=== PATIENT | female | born 1935 | race Caucasian/White ===

== ENCOUNTER 2017-06-06 05:59 | Day surgery (SDC) | payer OTHER ==
[2017-06-04 11:31] LABS: Potassium 4.6 mEq/L (3.6-5.0)
[2017-06-04 11:36] LABS: Protime INR 1.06
[2017-06-04 11:40] LABS: Absolute Lymphocytes (CBC) 1.6 K/uL (0.7-4.9); Absolute Monocytes 0.9 K/uL (0.1-1.3); Absolute Neutrophil 5.4 K/uL (1.8-8.0); Basophils % 0.7 % (0-1.3); Eosinophils % 1.2 % (0-4.4); Hematocrit 38.4 % (36.0-45.0); Lymphocytes % 20.1 % (15.3-44.8); MCH 29.4 pg (27.0-35.0); MCV 89.9 fL (80-100); MPV 9.4 fL (7.6-11.3); Monocytes % 10.7 % (3.3-12.3); RBC Red Blood Cell Count 4.27 M/uL (3.86-4.86)
[2017-06-04 12:04] LABS: Urine Appearance CLEAR; Urine Bilirubin NEGATIVE (NEG); Urine Blood 1+ (NEG); Urine Color YELLOW; Urine Glucose NEGATIVE (NEG); Urine Protein NEGATIVE (NEG); Urine Urobilinogen 0.2 mg/dL (0.2-1.0)
[2017-06-04 12:06] LABS: Urine Microscopic Reflex ORDER UMIC
[2017-06-04 12:28] LABS: Urine Bacteria <20 /HPF (<20)
[2017-06-04 12:29] LABS: Urine Culture Reflex Order NOT NEEDED
[2017-06-06] MEDS ORDERED: CEFAZOLIN/SWI 1gm 1 GM/10 ML SYR ONE ×2 (06:44→07:08)
[2017-06-06] MEDS ORDERED: Ringers Lactate 1,000 ML IV ONE ×2 (06:44→12:47)
[2017-06-06] MEDS ORDERED: NA CHLORIDE 0.9% 100 ML IV ONE (07:07)
[2017-06-06] MEDS ORDERED: VASOPRESSIN 20 UNIT/ML VIAL ONE (07:08)
[2017-06-06] MEDS ORDERED: MIDAZOLAM HCL 2 MG/2 ML INJ ONE (07:21)
[2017-06-06] MEDS ORDERED: ROCURONIUM 50 MG/5 ML VIAL IV ONE (07:22)
[2017-06-06] MEDS ORDERED: LIDOCAINE 2% MPF 5 ML VIAL ONE (07:22)
[2017-06-06] MEDS ORDERED: FENTANYL CITR 100 MCG/2 ML ONE ×2 (07:22→09:53)
[2017-06-06] MEDS ORDERED: PROPOFOL 200 MG/20 ML VIAL IV ONE (07:23)
[2017-06-06] MEDS ORDERED: EPHEDRINE SULF 50 MG/5 ML SYR ONE (08:11)
[2017-06-06] MEDS: Ringers Lactate 1,000 ML IV ONE ×2 (08:45→08:50)
[2017-06-06] MEDS ORDERED: NEOSTIGMINE 1 MG/ML -5 ML SYRINGE ONE (09:11)
[2017-06-06] MEDS ORDERED: GLYCOPYRROLATE 0.2 MG/ML SYR ONE (09:11)
[2017-06-06] MEDS ORDERED: ALBUTEROL INHALER 60 PUFF/8 GM IH ONE (09:38)
[2017-06-06] MEDS ORDERED: ONDANSETRON 4 MG/2 ML VIAL ONE (12:03)
[2017-06-06] MEDS ORDERED: PROMETHAZINE 25 MG/ML VIAL IV PRN (12:38)
[2017-06-06] MEDS ORDERED: ACETAMINOPHEN 500 MG TAB PO PRN (12:38)
[2017-06-06] MEDS ORDERED: MORPHINE 4 MG/ML SYR IV PRN (12:38)
[2017-06-06] MEDS ORDERED: NA CHLORIDE 0.9% 1,000 ML IV SCH (13:00)
[2017-06-06 13:24] VITALS: O2SAT 97; BMI 26.0
[2017-06-06] MEDS ORDERED: ALBUTEROL INHALER 60 PUFF/8 GM IH PRN (14:37)
--- NOTE | 2017-06-06 23:54 | OP ---
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 Procedures Performed: Colpocleisis, perineorrhaphy, mid urethral sling with TVT-O and cystoscopy. Anesthesia: General endotracheal. Estimated Blood Loss: Minimal 50 mL. Specimens: None. Complications: None. Drains: Lam catheter. Findings: Pop-Q is as follows; +2, +4, +5, 5 cm, then 5-6 cm, posterior AP is +2 and BP was +2, poin t D nonapplicable. On cystoscopy, the bladder appeared to be unremarkable. No evidence of any bladder perforation or tr auma from the procedures. Both ureteric orifices were visualized and good streams of urine from both . Brief History And Physical: The patient is an 82-year-old with history of hysterectomy, BSO, vaginal wall prolapse for a few years, progressively getting worse. She was managed with a pessary and the pessary had not worked for this patient due to erosion. Given her past history of breast cancer, she was very reluctant to use local estrogen therapy and so this did not work for her. We discussed pos sibilities of , then took the pessary out and allowed her to just observe since that is wha t she wanted to do at that time; however, she continued to have some recurrent bladder infections and so finally she made the decision that she was going to get this surgically treated. We discussed op tions about reconstruction or vaginal closure. After doing a urodynamic testing, she was found to dickens ve an occult stress urinary incontinence at times. The patient did have urinary leakage when the pes jordan was present. Currently, no other major problems. She was very sure that she was given 3 opport unities to think about and discuss the permanency of the procedure with colpocleisis. She discussed with the , watched videos of this, and she has understood the alternatives of reconstruction a nd its risks as compared to the colpocleisis including the comparisons of efficacy. Once all these w ere thoroughly thought through by the patient, she decided to proceed with a colpocleisis, understand ing that the vaginal closure was permanent and could not be reversed. She had not been sexually acti ve for many years due to her 's problems, so she was fairly sure after discussing with him. She was taken to the OR today after 1 g of Ancef was given. She was placed in a supine fashion on th e operating table. After general anesthesia was given, she was placed in a dorsal lithotomy position using the Juan stirrups. Pelvic exam performed and POP-Q as above. The vaginal wall was well visualized. This was picked up with 2 Allis clamps, after the lower abdome n, vulva, vagina, and perineum were prepped and draped in a sterile fashion. Lam was placed to torres in the bladder and retracted after it was clamped with a Kelsi superiorly. The anterior and posterio r hager were well visualized. They were marked out with a marking pen in a trapezoid fashion to know the markings of the superior and inferior part of the anterior and posterior wall excisions. Once t he markings were made with a marking pen, then we went ahead and injected with dilute vasopressin. P osterior wall was thus dissected. After this, the vaginal epithelium was leaving as much as tissue as possible behind. There was an enterocele, which did not have much covering, probably li semaj due to a fascial defect in this area. However, carefully without entering the enterocele sac, t his was . This was plicated together with 3-0 Vicryl sutures in the area, where the defect was visualized. Once this was closed, then we went ahead and proceeded to do the anterior wall and a nterior wall was also injected with dilute vasopressin and then the vaginal epithelium was peeled off leaving as much sub epithelium and fascia as possible. Once all this epithelium was removed as well , then thin strip of vaginal epithelium was left in the vaginal wall and on the sides as well. Most of the epithelium of the entire vaginal wall was stripped other than the distal 2 cm. The central bridge was used to start the closure of the vaginal wall. The fascia of the subepithelia l and connective tissue in the anterior and posterior hager were plicated together with continuous ru nning 2-0 Vicryl stitch starting at the left end of the vaginal wall bridge of epithelium. This was closed imbricating the vaginal epithelium, we went all the way to the end of it and then the entire r ight side. Lateral edges of the anterior and posterior wall were brought together with the help of a continuous running 2-0 Vicryl and then tied in the distal most part. In similar fashion, the anteri or and posterior hager on the left side were brought together using the bridge of the epithelium left in a continuous running fashion imbricating the vaginal epithelium. Once all these hager on the usman es were fixated together, then interrupted 3-0 Vicryl x2 were used to bring the anterior and posterio r hager together close to the vault about every cm, there were sutures that were placed in a figure-o f-eight fashion on the top and the bottom hager to get it together. After the first initial two 3-0 Vicryl stitches, then 2-0 Vicryl sutures were placed into more rows to appose the anterior and 911 telecommunicator ior hager together. Two to 3 stitches each were placed in each row to bring both hager together with out any space. Then, once the entire anterior wall was closed down which was larger than the po sterior wall bulge, then I evaluated the lower 1/3 of the vaginal wall. This appeared to have perine ocele. So, I took down another cm of the vaginal epithelium out in here. The anterior posterior wal ls were brought together as well. Then closed the vaginal mucosa from side to side with the help of 2-0 Vicryl in an interrupted fashion, 2 stitches had to be placed from anterior to posterior edge on the lateral aspect as they were in come together in the midline. Once this was all done, entire clos ure was done, so the colpocleisis then proceeded with the perineorrhaphy. Allises were placed at the hymenal opening. There was detachment of the ring and the deep transverse perineum were with a scar from her episiotomies and the scar was very obvious as well, so injection was given on the perineum and the vestibule and lowest 2 cm of the vaginal wall with vasopr essin. Then, the skin incision was made in a triangular fashion on the perineum and access gained in to the posterior compartment and this was traveled all the way to the level of the colpocleisis. The epithelium and sub-epithelium were dissected away from the underlying tissues and two wer e made, one on each side. Then, this was mildly trimmed performing the dissection. Then, 2-0 Vicryl stitch was placed from [id number] in the posterior lower was most part quite not as lat eral as the levators, but then this was tied again in the middle. Then, the perineal body was viktoriya t together with the help of 3 interrupted 2-0 Vicryl sutures with the finger in the rectum helping me place at the correct position. Once these were all brought together, the deep transverse perinei mu scles were put back together. Then, 3-0 Vicryl was used to close the mucosal incision in the subcuta neous fashion at the perineal body on the perineum and then the subcuticular fashion coming back up a nd putting the stitch inside the hymenal ring. There was excellent support. Rectal exam performed. No evidence of any trauma or perforation of the bowel. Gloves were changed. Cystoscopy was perform ed after the Lam was removed with a 17-Hungarian sheath, 30-degree lens, and normal saline. The cysto scopy was negative. No evidence of any trauma. Both ureteric orifices were patent. The Lam was r eplaced back after draining the bladder and clamped and retracted superiorly. Midurethral sling was done beginning of the vaginal mucosa on either side to the midline in the mid u rethral part about a cm proximal to the external urethral meatus. An incision was made with a 10 shanae de after infiltration with dilute vasopressin. Then, the external exit points of the TVT-O needles w ere marked out by the package instructions. Then, we went onto create flaps on both sides. Dissecti on was performed on both sides going to the inferior pubic ramus, passed into the obturator space and once the obturator membrane was perforated, the tips were opened up, and the scissors pulled back. On the left side, similar dissection was performed without any problems, then placed the wing guide o n the right side first, passed the spike, came out of the exit point like planned, and the plastic di lator was still left in place in opposite side. The wing guide was placed following the same dissect ion channel that was created on the first attempt. After the wing guide was placed, the plastic dila tor was passed through the needle and once it exited the point marked, the dilator was left in place. Lam was removed and cystoscopy was performed. No evidence of any trauma or perforation of the bl adder. The scope was removed. Lam was replaced. The sling was tensioned appropriately with Metzenbaum scissors right behind the sling and underneath the urethra. Once this was tensioned, the sheaths were pulled out after the plastic trocars were cut out. The skin was closed with the help of Dermabond. On the left side, there was some bleeding, bu t this stopped immediately after the graft was repositioned back. The mucosal incision here was clos ed with the help of a 3-0 Vicryl in a continuous running locked fashion. There was excellent hemosta sis. There was no more cystoscopy. Lam was placed to drain the bladder. Dermabond used to close the skin incisions in the thighs and the patient was recovered from anesthesia. Instrument, needle, and sponge counts x3 were correct at the end of the case. The patient tolerated the procedure well. She will be kept in the hospital for voiding tr ials and discharged home tomorrow. FLAVIA/ARABELLA Voice ID: [id number] Report ID: [id number]
[2017-06-07] MEDS ORDERED: Ringers Lactate 1,000 ML IV ONE (00:09)
[2017-06-07 04:23] LABS: Absolute Lymphocytes (CBC) 1.5 K/uL (0.7-4.9); Basophils % 0.3 % (0-1.3); Eosinophils % 0.6 % (0-4.4); Lymphocytes % 14.5 % (15.3-44.8); MCV 88.9 fL (80-100); MPV 9.1 fL (7.6-11.3); Monocytes % 9.8 % (3.3-12.3); RBC Red Blood Cell Count 3.27 M/uL (3.86-4.86)
[2017-06-07 08:01] VITALS: BP 128/62; TEMP 99.2
[2017-06-07] MEDS ORDERED: PROPOFOL 200 MG/20 ML VIAL IV ONE ×2 (12:18→12:48)
[2017-06-07] MEDS ORDERED: LIDOCAINE 2% MPF 5 ML VIAL ONE (12:19)
[2017-06-07] MEDS ORDERED: MIDAZOLAM HCL 2 MG/2 ML INJ ONE (12:19)
[2017-06-07] MEDS ORDERED: FENTANYL CITR 100 MCG/2 ML ONE (12:20)
[2017-06-07] MEDS ORDERED: ONDANSETRON 4 MG/2 ML VIAL ONE (12:20)
== END 2017-06-07 10:30 | disposition home or self-care (01) ==
LOC: OR 05:59 → 2ND-WC 11:31 → OR 06-07 10:30
PROVIDERS: ATTEND Obstetrics & Gynecology
PROC: 0ULG7ZZ Occlusion of Vagina, Via Natural or Artificial Opening (ICD-10-PCS; 2017-06-06)
PROC: 0HQ9XZZ Repair Perineum Skin, External Approach (ICD-10-PCS; 2017-06-06)
PROC: 0TSD0ZZ Reposition Urethra, Open Approach (ICD-10-PCS; principal; 2017-06-06 07:00)
DX: N99.3 Prolapse of vaginal vault after hysterectomy (principal); N39.3 Stress incontinence (female) (male); I10 Essential (primary) hypertension; K21.9 Gastro-esophageal reflux disease without esophagitis; I34.1 Nonrheumatic mitral (valve) prolapse; E05.90 Thyrotoxicosis, unspecified without thyrotoxic crisis or storm; I25.2 Old myocardial infarction; Z85.3 Personal history of malignant neoplasm of breast; Z87.11 Personal history of peptic ulcer disease; Z90.49 Acquired absence of other specified parts of digestive tract; Z90.12 Acquired absence of left breast and nipple
CPT/HCPCS: 12001; 36415 ×2; 57120; 57288; 80048; 85025 ×2; 85610; 85730; 86850; 86900; 86901; J0690 ×2; J2405; J2550; J2710; J3010 ×2; 81003; 81015; J2250

== ENCOUNTER 2019-05-13 07:24 | Observation (INO) | payer OTHER ==
--- NOTE | 2019-05-09 11:29 | EKG ---
Test Date: 2019-05-09 Test Time: 11:19:35 Technical Service Rep: GLADYS MEASUREMENT RESULTS: Intervals: Rate: 64 [place]: 182 QRSD: 76 QT: 412 QTc: 425 [place]: P: 58 [place]: 182 QRS: 69 T: 46 INTERPRETIVE STATEMENTS: Normal sinus rhythm Normal ECG Compared to ECG 12/17/2016 11:54:25 Myocardial infarct finding no longer present Electronically Signed On 05-09-19 11:28:59 PROFESSOR OF NURSING by Edgar Littlejohn
--- NOTE | 2019-05-09 12:06 | RAD REPORT ---
EXAM DESCRIPTION: RAD - Chest Pa And Lat (2 Views) - 05/09/2019 11:57 am CLINICAL HISTORY: pre-op heart cath Chest pain. COMPARISON: Chest Pa And Lat (2 Views) dated 01/17/2019; Chest Single View dated 12/17/2016; CHEST PA AND LAT 2 VIEW dated 03/10/2013; CHEST PA AND LAT 2 VIEW dated 12/09/2010 FINDINGS: The lungs are clear. The heart is upper limit of normal in size. No displaced fractures. IMPRESSION: No acute or concerning finding suspected.
[2019-05-09 12:50] LABS: Absolute Lymphocytes (CBC) 1.5 K/uL (0.7-4.9); Basophils % 0.8 % (0-1.3); Hematocrit 35.8 % (36.0-45.0); Lymphocytes % 22.8 % (15.3-44.8); MPV 9.1 fL (7.6-11.3); RBC Red Blood Cell Count 3.87 M/uL (3.86-4.86)
[2019-05-09 12:52] LABS: Protime INR 1.03
[2019-05-09 13:06] LABS: Potassium 4.1 mmol/L (3.5-5.1)
[2019-05-13] MEDS ORDERED: NA CHLORIDE 0.9% 500 ML ONE (08:06)
[2019-05-13] MEDS ORDERED: ONDANSETRON 4 MG/2 ML VIAL ONE (08:20)
[2019-05-13] MEDS ORDERED: LIDOCAINE 1% MPF 30 ML VIAL ONE (08:23)
[2019-05-13] MEDS ORDERED: HEPA 1000U/500MLS 1,000 UNIT/500 ML BAG IV ONE (08:23)
[2019-05-13] MEDS ORDERED: MIDAZOLAM HCL 2 MG/2 ML INJ ONE (08:54)
[2019-05-13] MEDS ORDERED: NA CHLORIDE 0.9% 50 ML ONE (08:55)
[2019-05-13] MEDS ORDERED: FENTANYL CITR 100 MCG/2 ML ONE (08:55)
[2019-05-13] MEDS ORDERED: ATROPINE SULF 1 MG/10 ML SYR IV ONE (08:55)
[2019-05-13] MEDS ORDERED: ASPIRIN 325 MG TAB ONE (09:36)
[2019-05-13] MEDS ORDERED: PRASUGREL (EFFIENT) 10 MG TAB ONE (09:37)
[2019-05-13] MEDS ORDERED: LIDOCAINE 1% W/EPI 1:100,000 MDV 20 ML VIAL ONE (10:39)
[2019-05-13] MEDS ORDERED: ACETAMINOPHEN 325 MG TABLET PO PRN (12:00)
[2019-05-13] MEDS ORDERED: NITROGLYCERIN 0.4 MG/TAB SL PRN (12:00)
[2019-05-13] MEDS ORDERED: NA CHLORIDE 0.9% 1,000 ML IV SCH (12:00)
[2019-05-13] MEDS ORDERED: PROMETHAZINE INJ 25 MG/ML AMP ONE (12:11)
[2019-05-13 15:03] VITALS: BMI 26.5
[2019-05-13] MEDS ORDERED: ZOLPIDEM TARTRATE 5 MG TABLET PO PRN (17:36)
[2019-05-13] MEDS ORDERED: MORPHINE 4 MG/ML SYR IV PRN (17:36)
--- NOTE | 2019-05-13 20:18 | OP ---
Date of Procedure: 05/13/2019 Surgeon: Edgar Littlejohn MD Charcoal Unloader: Sam Christy. Procedure: Left heart catheterization, selective coronary arteriogram, and primary stent of the mid left anterior descending. Indication: Unstable angina and history of coronary artery disease. History Of Present Illness: Ms. Ochoa is an 84-year-old woman. She has had a history of coronary artery disease in the past. She sees Dr. Tran normally. She did have a stress test that was normal , but has a history of hypertension, dyslipidemia, and continued to have symptoms of dyspnea on exert ion and chest pain despite a normal stress test. She does have a normal ejection fraction with moder ate pulmonary hypertension. She has [id number] mitral regurgitation, was admitted today for an outpatient procedure, which included left heart catheterization, selective coronary arteriogram, and primary stent of the mid LAD. Description Of Procedure: Patient was prepped and draped in the routine sterile fashion. She was gi john Versed for sedation. A 6-Micronesian sheath introduced in the right common femoral artery. 6-Micronesian catheters, left and right, were used to do the injection for the left main and the right main respect ively. Her RCA was normal. Her left main was normal. She had a 70% mid LAD lesion and about 70% to 80% mid to distal OM1 lesion. An XB LAD 3.5 with side hole was used to cannulate the left main. A [place] wire was used to cross the LAD lesion. A 2.5 x 12 Synergy stent at 14 atmospheres was deploye d with 0% residual in the LAD. Patient tolerated the procedure well. There were no complications. Blood Loss: 5 mL. Anesthesia: Total conscious sedation 45 minutes. Patient received Angiomax, aspirin, and Effient du ring the procedure. Plan: The plan is to bring her back and do her OM stent in a different day in a staged manner. Final Diagnosis: Coronary artery disease, status post successful mid left anterior descending stent. Plan to do a staged stent on the OM in the near future. ETIENNE/ARABELLA Voice ID: [id number] Report ID: [id number]
[2019-05-13] MEDS: carvediloL 12.5 MG TAB PO SCH (20:36)
[2019-05-13] MEDS: DOCUSATE NA 100 MG CAP PO SCH (20:37)
[2019-05-13] MEDS ORDERED: ATORVASTATIN 20 MG TAB PO SCH (21:00)
[2019-05-13] MEDS: HYDRALAZINE HCL 25 MG TABLET PO SCH (21:49)
[2019-05-14 04:34] LABS: Absolute Lymphocytes (CBC) 1.6 K/uL (0.7-4.9); Basophils % 0.6 % (0-1.3); Hematocrit 29.9 % (36.0-45.0); Lymphocytes % 22.5 % (15.3-44.8); MPV 8.8 fL (7.6-11.3); RBC Red Blood Cell Count 3.26 M/uL (3.86-4.86)
[2019-05-14 04:46] LABS: Potassium 4.3 mmol/L (3.5-5.1)
[2019-05-14] MEDS ORDERED: LEVOTHYROXINE SOD 0.1 MG TAB PO SCH (06:30)
[2019-05-14 06:46] VITALS: TEMP 97.8
[2019-05-14] MEDS ORDERED: PANTOPRAZOLE 40MG TABLET PO SCH (07:30)
[2019-05-14 07:44] VITALS: O2SAT 96
[2019-05-14] MEDS: DOCUSATE NA 100 MG CAP PO SCH (07:46)
[2019-05-14] MEDS: HYDRALAZINE HCL 25 MG TABLET PO SCH (07:46)
[2019-05-14 07:47] VITALS: BP 105/54
[2019-05-14] MEDS: carvediloL 12.5 MG TAB PO SCH (07:47)
[2019-05-14] MEDS ORDERED: CLOPIDOGREL 75 MG TABLET PO SCH (09:00)
[2019-05-14] MEDS ORDERED: MULTIVITAMIN TAB PO SCH (09:00)
[2019-05-14] MEDS ORDERED: LOSARTAN POTASSIUM 50 MG TABLET PO SCH (09:00)
[2019-05-14] MEDS ORDERED: ASPIRIN EC 81 MG TAB PO SCH (09:00)
--- NOTE | 2019-05-14 09:04 | EKG ---
Test Date: 2019-05-14 Test Time: 08:30:05 Radiation Physicist: GLADYS MEASUREMENT RESULTS: Intervals: Rate: 66 [place]: 172 QRSD: 82 QT: 404 QTc: 423 [place]: P: 46 [place]: 172 QRS: 4 T: 18 INTERPRETIVE STATEMENTS: Normal sinus rhythm Inferior infarct, age undetermined Abnormal ECG Compared to ECG 05/09/2019 11:19:35 Myocardial infarct finding now present Electronically Signed On 05-14-19 09:03:40 STACKING MACHINE OPERATOR by Alex Lino
== END 2019-05-14 09:15 | disposition home or self-care (01) ==
LOC: CCL 07:24 → 4TH 11:42
PROC: 027034Z Dilation of Coronary Artery, One Artery with Drug-eluting Intraluminal Device, Percutaneous Approach (ICD-10-PCS; principal; 2019-05-14)
PROC: 4A023N7 Measurement of Cardiac Sampling and Pressure, Left Heart, Percutaneous Approach (ICD-10-PCS; 2019-05-14)
PROC: B201YZZ Plain Radiography of Multiple Coronary Arteries using Other Contrast (ICD-10-PCS; 2019-05-14)
PROC: B205YZZ Plain Radiography of Left Heart using Other Contrast (ICD-10-PCS; 2019-05-14)
DX: I25.110 Atherosclerotic heart disease of native coronary artery with unstable angina pectoris (principal); I65.23 Occlusion and stenosis of bilateral carotid arteries; I10 Essential (primary) hypertension; E78.5 Hyperlipidemia, unspecified
CPT/HCPCS: 93005 ×2; 85025 ×2; 80048 ×2; 36415 ×2; 85610; 80061; 85347 ×4; 85730; 71046; 93454; 92928; C1893; C1725; C1877; C9600; J2550; J2250; J3010; J0583; J7040; J2405; G0378 ×3

== ENCOUNTER 2019-05-27 06:33 | Day surgery (SDC) | payer OTHER ==
[2019-05-23 11:45] LABS: Absolute Lymphocytes (CBC) 1.2 K/uL (0.7-4.9); Basophils % 0.6 % (0-1.3); Hematocrit 33.9 % (36.0-45.0); Lymphocytes % 23.5 % (15.3-44.8); MPV 8.8 fL (7.6-11.3); RBC Red Blood Cell Count 3.61 M/uL (3.86-4.86)
[2019-05-23 11:51] LABS: Protime INR 1.03
[2019-05-27] MEDS ORDERED: HEPA 1000U/500MLS 1,000 UNIT/500 ML BAG IV ONE (06:49)
[2019-05-27] MEDS ORDERED: LIDOCAINE 1% MPF 30 ML VIAL ONE (06:49)
[2019-05-27] MEDS ORDERED: NA CHLORIDE 0.9% 500 ML ONE (06:52)
[2019-05-27] MEDS ORDERED: ONDANSETRON 4 MG/2 ML VIAL ONE (07:26)
[2019-05-27] MEDS ORDERED: MIDAZOLAM HCL 2 MG/2 ML INJ ONE (07:44)
[2019-05-27] MEDS ORDERED: FENTANYL CITR 100 MCG/2 ML ONE (07:44)
[2019-05-27] MEDS ORDERED: NA CHLORIDE 0.9% 50 ML ONE (07:45)
[2019-05-27] MEDS ORDERED: NITROGLYCERIN 100 MCG/ML SYR (for cath lab use only) IV ONE (07:45)
[2019-05-27] MEDS ORDERED: ATROPINE SULF 1 MG/10 ML SYR IV ONE (07:45)
[2019-05-27] MEDS ORDERED: NITROGLYCERIN/D5W 0 MG/0 ML BTL IV ONE (07:45)
[2019-05-27] MEDS ORDERED: NITROGLYCERIN/D5W 25 MG/250 ML BTL IV ONE (08:00)
[2019-05-27] MEDS ORDERED: ASPIRIN 325 MG TAB ONE (08:12)
[2019-05-27] MEDS ORDERED: PRASUGREL (EFFIENT) 10 MG TAB ONE (08:13)
[2019-05-27] MEDS ORDERED: ONDANSETRON 4 MG/2 ML VIAL IV PRN (10:55)
[2019-05-27] MEDS ORDERED: NITROGLYCERIN 0.4 MG/TAB SL PRN (11:00)
[2019-05-27] MEDS ORDERED: ACETAMINOPHEN 325 MG TABLET PO PRN (11:00)
[2019-05-27] MEDS ORDERED: NA CHLORIDE 0.9% 1,000 ML IV SCH (11:00)
[2019-05-27 11:32] VITALS: BMI 26.5
--- NOTE | 2019-05-27 12:56 | OP ---
Surgeon: Edgar Littlejohn MD Mucking Machine Operator: Sam Christy. She was admitted as an outpatient to my service for an intervention today. Procedure Performed: Selective coronary arteriogram with a primary stent of the obtuse marginal. History Of Present Illness: Ms. Ochoa is 84, has had a history of coronary artery disease approxi mately a month ago. She underwent an LAD stent. She has had negative stress test in past and negati ve echo and continued to have chest pain. Since her LAD stent, she has improved drastically. On her last angiography, she was found to have an 80 to 90% first obtuse marginal. It was staged intervent ion that was planned for today. She was brought to the tender labor, prepped and draped in the routine s terile fashion. A 6-Malian sheath introduced in the right common femoral artery. Versed was given a nd fentanyl for sedation. A 6-Malian XB 3.5 was used to cannulate the left main. Coronary injection revealed a patent LAD stent and 90% first obtuse marginal. A Fraser wire was used to cross the lesi on, 0.014. A 2.25 x 12 Synergy stent was placed successfully at 14 atmosphere with 0% residual. The patient tolerated the procedure well. There were no complications. Blood Loss: 5 mL. Patient received aspirin, Effient, and Angiomax during the procedure. Anesthesia: Total conscious sedation was 45 minutes. Final Diagnosis: Status post successful primary stent of the obtuse marginal. Plan: For her to stay in the hospital overnight and she will go home tomorrow and I will see her in the office in a couple of weeks. No change in her medical therapy for now. ETIENNE/ARABELLA Voice ID: [id number] Report ID: [id number]
[2019-05-27] MEDS ORDERED: ATORVASTATIN 20 MG TAB PO SCH (21:00)
[2019-05-27] MEDS: HYDRALAZINE HCL 25 MG TABLET PO SCH (21:09)
[2019-05-28 04:17] LABS: Absolute Lymphocytes (CBC) 1.1 K/uL (0.7-4.9); Basophils % 0.7 % (0-1.3); Hematocrit 29.2 % (36.0-45.0); Lymphocytes % 20.1 % (15.3-44.8); MPV 8.6 fL (7.6-11.3); RBC Red Blood Cell Count 3.12 M/uL (3.86-4.86)
[2019-05-28 04:33] LABS: Potassium 4.4 mmol/L (3.5-5.1)
[2019-05-28] MEDS ORDERED: carvediloL 12.5 MG TAB PO SCH (06:00)
[2019-05-28] MEDS ORDERED: LEVOTHYROXINE SOD 0.1 MG TAB PO SCH (06:30)
[2019-05-28] MEDS ORDERED: PANTOPRAZOLE 40MG TABLET PO SCH (06:30)
[2019-05-28 07:37] VITALS: O2SAT 95
[2019-05-28] MEDS: HYDRALAZINE HCL 25 MG TABLET PO SCH (07:40)
[2019-05-28 07:55] VITALS: BP 119/60; TEMP 97.5
[2019-05-28] MEDS ORDERED: ASPIRIN 81 MG CHEWABLE TABLET PO SCH (09:00)
[2019-05-28] MEDS ORDERED: CLOPIDOGREL 75 MG TABLET PO SCH (09:00)
[2019-05-28] MEDS ORDERED: MULTIVITAMIN TAB PO SCH (09:00)
[2019-05-28] MEDS ORDERED: LOSARTAN POTASSIUM 50 MG TABLET PO SCH ×2 (09:00)
--- NOTE | 2019-05-28 13:24 | EKG ---
Test Date: 2019-05-28 Test Time: 08:29:34 Engine Boss: GLADYS MEASUREMENT RESULTS: Intervals: Rate: 66 [place]: 176 QRSD: 80 QT: 410 QTc: 429 [place]: P: 57 [place]: 176 QRS: 3 T: 26 INTERPRETIVE STATEMENTS: Normal sinus rhythm Cannot rule out Anterior infarct, age undetermined Abnormal ECG Compared to ECG 05/14/2019 08:30:05 No significant changes Electronically Signed On 05-28-19 13:24:06 CDT by Alex Lino
== END 2019-05-28 11:22 | disposition home or self-care (01) ==
LOC: CCL 06:33 → 4TH 10:24 → CCL 05-28 11:22
DX: I25.110 Atherosclerotic heart disease of native coronary artery with unstable angina pectoris (principal); I65.23 Occlusion and stenosis of bilateral carotid arteries; I34.1 Nonrheumatic mitral (valve) prolapse; I10 Essential (primary) hypertension; E78.5 Hyperlipidemia, unspecified; Z85.3 Personal history of malignant neoplasm of breast; Z88.6 Allergy status to analgesic agent; Z88.3 Allergy status to other anti-infective agents; Z88.8 Allergy status to other drugs, medicaments and biological substances; Z79.82 Long term (current) use of aspirin; Z79.02 Long term (current) use of antithrombotics/antiplatelets; Z82.49 Family history of ischemic heart disease and other diseases of the circulatory system
CPT/HCPCS: 93005; 85025 ×2; 80048; 36415 ×2; 85610; 80061; 85347 ×3; 85730; 93454; C1893; C1760; C1725; C9600; J2250; J3010; J0583; J7040; J2405

== ENCOUNTER 2019-11-18 18:23 | Emergency (ER) | payer OTHER ==
--- NOTE | 2019-11-18 19:07 | RAD REPORT ---
EXAM DESCRIPTION: CT - [id number] - 11/18/2019 6:50 pm CLINICAL HISTORY: fall from standing, head injury COMPARISON: No comparisons TECHNIQUE: Axial 5 mm thick images of the head were obtained. Axial 2 mm thick images of the cervic al spine were obtained with sagittal and coronal reconstruction images generated and reviewed. All CT scans are performed using dose optimization technique as appropriate and may include automated exposure control or mA/KV adjustment according to patient size. FINDINGS: No intracranial hemorrhage, mass, edema or acute intracranial finding. No suspicion for ac [place] infarction. No extra-axial fluid collections. Mastoid air cells and paranasal sinuses are clear. No globe or orbit abnormality seen. Minimal atrophy and chronic ischemic change. Ventricles are alva l. Small left frontal scalp hematoma is present. Underlying bone is intact. Cervical bodies are normal in height. No subluxation abnormality. Advanced degenerative change presen t at the dens anterior arch C1 level. C4-5 and C6-7 disc space narrowing present. No fracture or acut e bony abnormality. No pathologic bone process. Central canal detail is inherently limited. No paraspinal mass or hematoma. Carotid arterial calcifications are present. IMPRESSION: No hemorrhage, edema or acute intracranial finding. Patient has minimal atrophy and senior hr business partner anne ischemic change. Left frontal scalp hematoma is present with underlying bone intact. Cervical spine degenerative changes are present as detailed. No acute findings.
[2019-11-18] MEDS ORDERED: ACETAMINOPHEN 500 MG TAB ONE (19:47)
[2019-11-18] MEDS ORDERED: LIDOCAINE 1% MPF 30 ML VIAL ONE (19:50)
[2019-11-18] MEDS ORDERED: TETANUS & DIPHTHERIA TOX,ADULT 0.5 ML VIAL ONE (19:50)
--- NOTE | 2019-11-18 20:27 | EDPHYS ---
Physician Documentation [facility] Name: Kenney Ochoa Age: 84 yrs Sex: Female : 1935 Arrival Date: 11/18/2019 Time: 18:28 Bed 15 Private MD: ED Physician Brady Oneill HPI: 11/17 19:18 This 84 yrs old Female presents to ER via EMS with complaints of Fall Injury. mh7 19:18 Details of fall: The patient fell from an upright position, while walking. Onset: The mh7 symptoms/episode began/occurred just prior to arrival, today. Associated injuries: The patient sustained injury to the head, laceration, 4 cm(s), of the forehead. Severity of symptoms: At their worst the symptoms were moderate, earlier today, in the emergency department the symptoms are unchanged. 19:19 Patient states that she tripped and fell over object on floor at home. She denies any mh7 LOC, neck pain, chest pain, abdominal pain, SOB, nausea, vomiting, dizziness, numbness/tingling, or weakness. She denies any symptoms prior to falling.. Historical: - Allergies: 18:32 Ciprofloxacin HCl; hb 18:32 Codeine; hb 18:32 Flagyl; hb 18:32 Hydrochlorothiazide; hb - Home Meds: 18:32 aspirin 81 mg Oral chew 2 tabs once daily [Active]; carvedilol 25 mg Oral tab 1 tab 2 hb times per day [Active]; levothyroxine 100 mcg tab 1 tab once daily [Active]; Nexium 40 mg Oral cpDR 1 cap once daily [Active]; simvastatin 40 mg Oral tab 1 tab once daily [Active]; valsartan 80 mg Oral tab 1 tab once daily [Active]; - PMHx: 18:32 High Cholesterol; Hypertension; Breast CA; hb - PSHx: 18:32 left mastectomy; left knee; right knee; Cholecystectomy; right hip; Hysterectomy; hb hemorroid; Mastectomy - Left; - Immunization history:: Adult Immunizations up to date. - Social history:: Smoking status: Patient denies any tobacco usage or history of. - Immunization history: Last tetanus immunization:. ROS: 19:19 Constitutional: Negative for fever, chills, and weight loss, Eyes: Negative for injury, mh7 pain, redness, and discharge, ENT: Negative for injury, pain, and discharge, Neck: Negative for injury, pain, and swelling, Cardiovascular: Negative for chest pain, palpitations, and edema, Respiratory: Negative for shortness of breath, cough, wheezing, and pleuritic chest pain, Abdomen/GI: Negative for abdominal pain, nausea, vomiting, diarrhea, and constipation, Back: Negative for injury and pain, : Negative for injury, bleeding, discharge, and swelling, MS/Extremity: Negative for injury and deformity, Neuro: Negative for headache, weakness, numbness, tingling, and seizure, Psych: Negative for depression, anxiety, suicide ideation, homicidal ideation, and hallucinations, Allergy/Immunology: Negative for hives, rash, and allergies, Endocrine: Negative for neck swelling, polydipsia, polyuria, polyphagia, and marked weight changes, Hematologic/Lymphatic: Negative for swollen nodes, abnormal bleeding, and unusual bruising. Exam: 19:19 Constitutional: This is a well developed, well nourished patient who is awake, alert, mh7 and in no acute distress. 19:19 Eyes: Pupils equal round and reactive to light, extra-ocular motions intact. Lids and lashes normal. Conjunctiva and sclera are non-icteric and not injected. Cornea within normal limits. Periorbital areas with no swelling, redness, or edema. ENT: Nares patent. No nasal discharge, no septal abnormalities noted. Tympanic membranes are normal and external auditory canals are clear. Oropharynx with no redness, swelling, or masses, exudates, or evidence of obstruction, uvula midline. Mucous membranes moist. Neck: Trachea midline, no thyromegaly or masses palpated, and no cervical lymphadenopathy. Supple, full range of motion without nuchal rigidity, or vertebral point tenderness. No Meningismus. Chest/axilla: Normal chest wall appearance and motion. Nontender with no deformity. No lesions are appreciated. Cardiovascular: Regular rate and rhythm with a normal S1 and S2. No gallops, murmurs, or rubs. Normal PMI, no JVD. No pulse deficits. Respiratory: Lungs have equal breath sounds bilaterally, clear to auscultation and percussion. No rales, rhonchi or wheezes noted. No increased work of breathing, no retractions or nasal flaring. Abdomen/GI: Soft, non-tender, with normal bowel sounds. No distension or tympany. No guarding or rebound. No evidence of tenderness throughout. Back: No spinal tenderness. No costovertebral tenderness. Full range of motion. MS/ Extremity: Pulses equal, no cyanosis. Neurovascular intact. Full, normal range of motion. Neuro: Awake and alert, GCS 15, oriented to person, place, time, and situation. Cranial nerves II-XII grossly intact. Motor strength 5/5 in all extremities. Sensory grossly intact. Cerebellar exam normal. Normal gait. Psych: Awake, alert, with orientation to person, place and time. Behavior, mood, and affect are within normal limits. 11/18 03:57 Head/face: mh7 03:57 Head/face: Noted is contusion, that is superficial, of the forehead, a laceration(s), mh7 that is deep, 4.5 cm(s), of the forehead. Vital Signs: 11/17 18:30 BP 161 / 69; Pulse 64; Resp 16; Temp 97.7; Pulse Ox 100% on R/A; Weight 68.04 kg; hb Height 5 ft. 3 in. (160.02 cm); Pain 0/10; 18:30 BP 168 / 84; Pulse 70; Resp 16; Temp 97.6(O); Pulse Ox 98% on R/A; Pain 0/10; ls4 18:30 Body Mass Index 26.57 (68.04 kg, 160.02 cm) hb [place] Coma Score: 18:23 Eye Response: spontaneous(4). Verbal Response: oriented(5). Motor Response: obeys hb commands(6). Total: 15. Trauma Score (Adult): 18:23 Eye Response: spontaneous(1); Verbal Response: oriented(1); Motor Response: obeys hb commands(2); Systolic BP: > 89 mm Hg(4); Respiratory Rate: 10 to 29 per min(4); Kelsey Score: 15; Trauma Score: 12 Laceration: 20:23 Wound Repair of 4.5cm ( 1.8in ) subcutaneous laceration to forehead. Distal mh7 neuro/vascular/tendon intact. Anesthesia: Local anesthetic administered with 6 mls of 1% lidocaine. Wound prep: Extensive cleansing with hibiclenz by me, Wound irrigation by me, Wound explored, Copious irrigation. Skin closed with 11 6-0 Prolene using interrupted sutures and sterile technique. Subcutaneous tissue closed with 3 5-0 Vicryl using interrupted sutures and sterile technique. Dressed with Bacitracin, 4x4's, non-adherent dressing. Patient tolerated well. MDM: 19:11 Patient medically screened. [facility] 20:23 Differential diagnosis: abrasion, closed head injury, contusion, fracture, laceration. [facility] Data reviewed: vital signs, nurses notes, radiologic studies, CT scan. Data interpreted: Pulse oximetry: on room air is 98 %. Interpretation: normal. Counseling: I had a detailed discussion with the patient and/or guardian regarding: the historical points, exam findings, and any diagnostic results supporting the discharge/admit diagnosis, the presence of at least one elevated blood pressure reading (>120/80) during this emergency department visit, radiology results, the need for outpatient follow up, to return to the emergency department if symptoms worsen or persist or if there are any questions or concerns that arise at home. 11/18 03:57 Response to treatment: the patient's symptoms have markedly improved after treatment. [facility] 11/17 18:37 Order name: CT Head C Spine; Complete Time: 19:12 hb Administered Medications: 11/17 20:03 Drug: Tetanus-Diphtheria Toxoid Adult 0.5 ml {Print Controller: feedPack. Exp: ll2 05/14/2022. Lot #: [id number]. } Route: IM; Site: right deltoid; 20:20 Follow up: Response: No adverse reaction; Marked relief of symptoms ls4 20:03 Drug: Tylenol 1000 mg Route: PO; ll2 20:20 Follow up: Response: No adverse reaction ls4 Disposition: 11/18 03:58 Co-signature as Attending Physician, Brady Oneill MD. [facility] Disposition: 11/18/19 20:27 Discharged to Home. Impression: Fall-Mechanical, Facial Laceration. - Condition is Stable. - Discharge Instructions: Facial Laceration, [id number], Fall Prevention in the Home, [id number]. - Medication Reconciliation Form, Thank You Letter, Antibiotic Education, Prescription Opioid Use form. - Follow up: Private Physician; When: 48 Hours; Reason: Wound Recheck, Worsening of condition, Recheck today's complaints, Continuance of care, Re-evaluation by your physician. - Problem is new. - Symptoms have improved. Signatures: Dispatcher [employer] EDMS Muna Storm, RN RN Johanna Carter RN RN ls4 Tressa Roberts RN RN ll2 Brady Oneill MD MD mh7 Corrections: (The following items were deleted from the chart) 11/17 21:32 20:27 11/18/2019 20:27 Discharged to Home. Impression: Fall-Mechanical; Facial ls4 Laceration. Condition is Stable. Forms are Medication Reconciliation Form, Thank You Letter, Antibiotic Education, Prescription Opioid Use. Follow up: Private Physician; When: 48 Hours; Reason: Wound Recheck, Worsening of condition, Recheck today's complaints, Continuance of care, Re-evaluation by your physician. Problem is new. Symptoms have improved. mh7
--- NOTE | 2019-11-18 20:27 | ER ---
Nurse's Notes [facility] Name: Kenney Ochoa Age: 84 yrs Sex: Female : 1935 Arrival Date: 11/18/2019 Time: 18:28 Bed 15 Private MD: Diagnosis: Fall-Mechanical;Facial Laceration Presentation: 11/17 18:28 Chief complaint: EMS states: Left forehead laceration after mechanical fall from hb standing. Pt tripped while ambulating in living room, hit head on end table. NEGATIVE LOC;. Takes ASA. Care prior to arrival: None. Mechanism of Injury: Fall from standing position. Trauma event details: Injury occurred in the [facility], Injury occurred: at home. Injury occurred: November 18, 2019. 18:28 Acuity: ELLEN 2 hb 18:28 Method Of Arrival: EMS: [facility] 18:30 Coronavirus screen: At this time, the client does not indicate any symptoms associated hb with coronavirus-19. Ebola Screen: No symptoms or risks identified at this time. Initial Sepsis Screen: Does the patient meet any 2 criteria? No. Patient's initial sepsis screen is negative. Does the patient have a suspected source of infection? No. Patient's initial sepsis screen is negative. Risk Assessment: Do you want to hurt yourself or someone else? Patient reports no desire to harm self or others. Onset of symptoms was November 18, 2019. Trauma Activation: Alert Physician: ED Physician; Name: ; Notified At: ; Arrived At: Physician: General Surgeon; Name: ; Notified At: ; Arrived At: Physician: Radiology; Name: ; Notified At: ; Arrived At: Physician: Respiratory; Name: ; Notified At: ; Arrived At: Physician: Lab; Name: ; Notified At: ; Arrived At: Historical: - Allergies: 18:32 Ciprofloxacin HCl; hb 18:32 Codeine; hb 18:32 Flagyl; hb 18:32 Hydrochlorothiazide; hb - Home Meds: 18:32 aspirin 81 mg Oral chew 2 tabs once daily [Active]; carvedilol 25 mg Oral tab 1 tab 2 hb times per day [Active]; levothyroxine 100 mcg tab 1 tab once daily [Active]; Nexium 40 mg Oral cpDR 1 cap once daily [Active]; simvastatin 40 mg Oral tab 1 tab once daily [Active]; valsartan 80 mg Oral tab 1 tab once daily [Active]; - PMHx: 18:32 High Cholesterol; Hypertension; Breast CA; hb - PSHx: 18:32 left mastectomy; left knee; right knee; Cholecystectomy; right hip; Hysterectomy; hb hemorroid; Mastectomy - Left; - Immunization history:: Adult Immunizations up to date. - Social history:: Smoking status: Patient denies any tobacco usage or history of. - Immunization history: Last tetanus immunization:. Screenin:23 Abuse screen: Denies threats or abuse. Denies injuries from another. Tuberculosis hb screening: No symptoms or risk factors identified. 18:38 Nutritional screening: No deficits noted. Fall Risk Total [place] Fall Scale indicates hb Low Risk Score (25-44 pts). Fall prevention measures have been instituted. Side Rails Up X 2 Frequent Obs/Assesments occuring As available Patient and Family Educated on Fall Prevention Program and strategies. Primary Survey: 18:23 NO uncontrolled hemorrhage observed. A: The patient is alert. Airway: patent, No hb supplemental oxygen in use on arrival. Breathing/Chest: Respiratory pattern: regular, Respiratory effort: spontaneous, unlabored, Chest inspection: symmetrical rise and fall of the chest. Circulation: Pulses: palpable . Skin color: pink. Disability Alert. Exposure/Environment: There is no evidence of uncontrolled external bleeding. Obvious injury(ies) are noted at this time: laceration to left forehead. 19:20 Reassessment Airway Airway Patent Oxygen No O2 Oral cavity Clear +Gag reflex Trachea ls4 Midline Breathing/Chest Respiratory pattern Regular Respiratory effort Spontaneous Unlabored Circulation Heart rhythm Sinus rhythm Heart tones Present Pulses Palpable Color [place] Temperature Warm Dry Disability Alert. Secondary Survey: 18:30 HEENT: No deficits noted. Gastrointestinal: No deficits noted. Abdomen is soft, ls4 non-distended, Bowel sounds present in all quadrants. Palpation No deficit noted. : No deficits noted. No signs and/or symptoms were reported regarding the genitourinary system. Musculoskeletal: No deficits noted. No signs and/or symptoms reported regarding the musculoskeletal system. Injury Description: Laceration sustained to forehead is 7.6 to 20 cm long, not bleeding, was sustained 30-60 minutes ago. Assessment: 18:29 General: Appears in no apparent distress. uncomfortable, Behavior is calm, cooperative. ls4 18:29 Pain: Denies pain. Neuro: Level of Consciousness is awake, alert, obeys commands, ls4 Oriented to person, place, time, situation, Denies weakness blurred vision dizziness, difficulty swallowing, paresthesias numbness headache photophobia diplopia. EENT: No deficits noted. No signs and/or symptoms were reported regarding the EENT system. Oral mucosa is moist. Cardiovascular: Capillary refill < 3 seconds Patient's skin is warm and dry. Respiratory: Airway is patent Respiratory effort is even, unlabored, Respiratory pattern is regular, Breath sounds are clear bilaterally. GI: No deficits noted. No signs and/or symptoms were reported involving the gastrointestinal system. : No deficits noted. No signs and/or symptoms were reported regarding the genitourinary system. Derm: Skin is pink, warm \T\ dry. Wound noted forehead Wound is Laceration, bleeding controlled. ice applied. Denies. Musculoskeletal: Circulation, motion, and sensation intact. Capillary refill < 3 seconds, Range of motion: intact in all extremities, Swelling present in forehead. Vital Signs: 18:30 BP 161 / 69; Pulse 64; Resp 16; Temp 97.7; Pulse Ox 100% on R/A; Weight 68.04 kg; hb Height 5 ft. 3 in. (160.02 cm); Pain 0/10; 18:30 BP 168 / 84; Pulse 70; Resp 16; Temp 97.6(O); Pulse Ox 98% on R/A; Pain 0/10; ls4 18:30 Body Mass Index 26.57 (68.04 kg, 160.02 cm) hb [place] Coma Score: 18:23 Eye Response: spontaneous(4). Verbal Response: oriented(5). Motor Response: obeys hb commands(6). Total: 15. Trauma Score (Adult): 18:23 Eye Response: spontaneous(1); Verbal Response: oriented(1); Motor Response: obeys hb commands(2); Systolic BP: > 89 mm Hg(4); Respiratory Rate: 10 to 29 per min(4); Ney Score: 15; Trauma Score: 12 ED Course: 18:28 Patient arrived in ED. hb 18:30 Triage completed. hb 18:30 personnel monitor on. Pulse ox on. NIBP on. ll2 18:30 Warm blanket given. Verbal reassurance given. ll2 18:32 Arm band placed on. hb 18:38 Patient has correct armband on for positive identification. Bed in low position. Call hb light in reach. Side rails up X2. 18:39 Patient maintains SpO2 saturation greater than 95% on room air. Thermoregulation: warm hb blanket given to patient. 18:50 CT Head C Spine In Process Unspecified. EDMS 19:02 Brady Oneill MD is Attending Physician. [facility] 19:12 Johanna Patiño, RN is Primary Nurse. ls4 19:17 Patient did not have IV access during this emergency room visit. ls4 19:30 Wound care: to laceration was cleaned with soap and water, ice pack applied. Patient ls4 tolerated well. 20:23 Assist provider with laceration repair on forehead that was between 12.6 to 20 cm using ll2 sutures. Set up tray. Performed by Brady Oneill MD Dressed with Patient tolerated well. 21:10 Dressings: non-adherent dressing x 1 forehead Tegaderm X 1; forehead triple antibiotic. ls4 Administered Medications: 20:03 Drug: Tetanus-Diphtheria Toxoid Adult 0.5 ml {District Extension Service Agent: Instant [employer]. Exp: ll2 05/14/2022. Lot #: [id number]. } Route: IM; Site: right deltoid; 20:20 Follow up: Response: No adverse reaction; Marked relief of symptoms ls4 20:03 Drug: Tylenol 1000 mg Route: PO; ll2 20:20 Follow up: Response: No adverse reaction ls4 Intake: 18:23 PO: 0ml; Total: 0ml. hb Outcome: 20:27 Discharge ordered by . 7 21:31 Discharged to home ambulatory. ls4 21:31 Condition: stable 21:31 Discharge instructions given to patient, Instructed on discharge instructions, follow up and referral plans. medication usage, Demonstrated understanding of instructions, follow-up care, medications. 21:32 Patient left the ED. ls4 Signatures: Dispatcher [employer] EDAK Muna Storm RN Johanna Bojorquez, RN RN ls4 Tressa Roberts RN RN 2 Brady Oneill MD MD [facility] Corrections: (The following items were deleted from the chart) 20:24 19:17 No provider procedures requiring assistance completed. ls4 ll2
[2019-11-18 23:00] VITALS: BP 161/69; TEMP 97.7; O2SAT 100
== END 2019-11-18 21:32 | disposition home or self-care (01) ==
LOC: ER 18:23
PROC: 0JQ10ZZ Repair Face Subcutaneous Tissue and Fascia, Open Approach (ICD-10-PCS; principal; 2019-11-18)
DX: S01.81XA Laceration without foreign body of other part of head, initial encounter (principal); W01.198A Fall on same level from slipping, tripping and stumbling with subsequent striking against other object, initial encounter; Y93.01 Activity, walking, marching and hiking; Y92.9 Unspecified place or not applicable; I10 Essential (primary) hypertension; E78.00 Pure hypercholesterolemia, unspecified; Z23 Encounter for immunization; Z79.82 Long term (current) use of aspirin; Z85.3 Personal history of malignant neoplasm of breast; Z88.1 Allergy status to other antibiotic agents; Z88.5 Allergy status to narcotic agent; Z88.8 Allergy status to other drugs, medicaments and biological substances; Z90.12 Acquired absence of left breast and nipple
CPT/HCPCS: 70450; 72125; 90471; 90714; 99285; G0390

== ENCOUNTER 2023-03-28 07:00 | Day surgery (SDC) | payer OTHER ==
--- NOTE | 2023-03-26 14:26 | RAD REPORT ---
EXAM DESCRIPTION: RAD - Chest Pa And Lat (2 Views) - 03/26/2023 2:20 pm CLINICAL HISTORY: PRE OP LEFT HEART CATH Chest pain. TECHNIQUE: PA and lateral views of the chest were obtained. FINDINGS: The lungs are hyperexpanded compatible with COPD. The heart is upper limit of normal in si ze. No fracture or aggressive bony process. IMPRESSION: COPD without acute process identified. The USPSTF recommends annual screening for lung cancer with low-dose CT (LDCT) in adults aged 50 to 80 years who have a 20 pack-year smoking history and currently smoke or have quit within the past 15 years.
[2023-03-26 14:37] LABS: Absolute Lymphocytes (CBC) 1.3 K/uL (0.7-4.9); Hematocrit 33.9 % (36.0-45.0); Lymphocytes % 22.6 % (15.3-44.8); MCV 92.9 fL (80-100); MPV 8.3 fL (7.6-11.3); Platelets 179 thou/uL (152-406); RBC Red Blood Cell Count 3.64 M/uL (3.86-4.86)
[2023-03-26 14:47] LABS: Protime INR 1.08
[2023-03-28] MEDS ORDERED: LIDOCAINE 1% 20 ML MDV ONE (07:11)
[2023-03-28] MEDS ORDERED: HEPA 1000U/500MLS 2,000 UNIT/1,000 ML BAG IV ONE (07:11)
[2023-03-28] MEDS ORDERED: FENTANYL CITR 100 MCG/2 ML ONE (07:12)
[2023-03-28] MEDS ORDERED: MIDAZOLAM HCL 2 MG/2 ML INJ ONE (07:12)
[2023-03-28] MEDS ORDERED: ATROPINE SULFATE 1 MG/ML INJ ONE (07:12)
[2023-03-28] MEDS ORDERED: HEPARIN 5000 UNIT/ML 1 ML VIAL ONE (07:12)
[2023-03-28] MEDS ORDERED: ATROPINE SULF 1 MG/10 ML SYR IV ONE (07:13)
[2023-03-28] MEDS ORDERED: VERAPAMIL HCL 10 MG/4 ML VIAL IV ONE (07:22)
[2023-03-28] MEDS ORDERED: NITROGLYCERIN/D5W 25 MG/250 ML BTL IV ONE (07:22)
[2023-03-28] MEDS ORDERED: CLOPIDOGREL 75 MG TABLET ONE (07:35)
[2023-03-28] MEDS ORDERED: TICAGRELOR 90 MG TABLET PO ONE (07:35)
[2023-03-28] MEDS ORDERED: ASPIRIN 325 MG TAB ONE (07:36)
--- NOTE | 2023-03-28 08:45 | OP ---
Date of Procedure: 03/28/2023 Surgeon: MIKY ALEXANDER Procedure Performed: Selective coronary angiogram. Indication: Severe aortic valve stenosis prior to aortic valve replacement. Access: Right radial artery 6-Surinamese closed with TR band. Complications: None. Bleeding: Less than 20 mL. Anesthesia: Total sedation time was 30 minutes. Description Of Procedure: After risks, benefits, alternatives explained, patient agreed to procedure , and signed informed consent. The patient was brought into cardiac catheterization laboratory, prep ped and draped in sterile fashion and then accessed right radial artery using pediatric micropuncture kit, placed a 6-Surinamese Slender sheath and took 5-Surinamese [place] 4.0 catheter over the J-wire into the aortic root, engaged left main and then right coronary artery and took standard views and then remove d the catheter and the sheath, placed TR band with good hemostasis. Findings: 1.Left main: It is normal. 2.LAD: Large vessel, proximal 40%. Mid LAD stent is patent. Diagonal 1 branch has ostial 70% sten osis and some mild luminal irregularities. 3.Left circumflex: Moderate size with luminal irregularities. 4.RCA: It is dominant with proximal to mid diffuse 60% stenosis. Conclusion: Moderate coronary artery disease. Plan: Proceed with TAVR as scheduled. SR/MODL Voice ID: [id number] Report ID: [id number]
[2023-03-28 08:50] VITALS: TEMP 97.8
[2023-03-28 09:52] VITALS: O2SAT 95
[2023-03-28 10:25] VITALS: BP 145/75
== END 2023-03-28 10:28 | disposition home or self-care (01) ==
LOC: CCL 07:00
PROVIDERS: ATTEND Internal Medicine
DX: I35.0 Nonrheumatic aortic (valve) stenosis (principal); I25.10 Atherosclerotic heart disease of native coronary artery without angina pectoris; I65.23 Occlusion and stenosis of bilateral carotid arteries; I70.203 Unspecified atherosclerosis of native arteries of extremities, bilateral legs; I10 Essential (primary) hypertension; E78.5 Hyperlipidemia, unspecified; I15.9 Secondary hypertension, unspecified; Z95.5 Presence of coronary angioplasty implant and graft; Z79.02 Long term (current) use of antithrombotics/antiplatelets; Z79.82 Long term (current) use of aspirin; Z79.899 Other long term (current) drug therapy; Z88.1 Allergy status to other antibiotic agents; Z88.5 Allergy status to narcotic agent; Z88.8 Allergy status to other drugs, medicaments and biological substances; Z82.49 Family history of ischemic heart disease and other diseases of the circulatory system
CPT/HCPCS: 36415; 71046; 76937; 80048; 85025; 85610; 85730; 93005; 93454; 99152; C1893; J0461; J1644; J2001; J2250; J3010; Q9966